=== PATIENT | female | born 1960 | race Caucasian/White ===

== ENCOUNTER 2018-08-18 09:54 | Inpatient (IN) | payer OTHER ==
[2018-08-18] MEDS: SOD CHLORIDE 0.9% 1,000 ML IV (07:00)
[2018-08-18] MEDS: CEFAZOLIN 2 GM/50 ML (PMX) 50 ML IVPB (07:00)
[~2018-08-18 09:54] MED LIST: CEFAZOLIN 1 GM INJ; DEXAMETHASONE 4 MG/ML 5 ML INJ; FENTAnyl 50 MCG/ML VIAL; GLYCOPYRROLATE 0.4 MG INJ; LIDOCAINE 2% (SDV) 5 ML INJ; MIDAZOLAM 1 MG/ML 2 ML INJ; NEOSTIGMINE 3 MG/3 ML SYRINGE; ONDANSETRON 4 MG INJ; PROPOFOL 20 ML; ROCURONIUM 50 MG INJ; SEVOFLURANE 15 MIN; SUCCINYLCHOLINE CHLORIDE 100 MG/5 ML SYG IV; SUGAMMADEX SODIUM 200 MG/2 ML VIAL IV
[2018-08-18 11:10] LABS: ADD MAN DIFF? NO
[2018-08-18 11:18] LABS: WHITE BLOOD COUNT 4.5 10^3/ul (4.8-10.8)
[2018-08-18 11:18] LABS: BASOPHILS % 0.9 % (0.0-2.0); EOSINOPHILS # 0.2 10^3/ul (0.0-0.5); EOSINOPHILS % 3.4 % (0.0-7.0); HEMATOCRIT 39.4 % (37.0-47.0); HEMOGLOBIN 12.7 g/dl (12.0-16.0); LYMPHOCYTES # 1.3 10^3/ul (0.8-2.9); LYMPHOCYTES % 28.9 % (15.0-51.0); MEAN CORPUSCULAR HEMOGLOBIN 27.7 pg (29.0-33.0); MEAN CORPUSCULAR HGB CONC 32.2 g/dl (32.0-37.0); MEAN PLATELET VOLUME 9.9 fl (7.4-10.4); MONOCYTE # 0.4 10^3/ul (0.3-0.9); MONOCYTES % 8.9 % (0.0-11.0); NEUTROPHIL # 2.6 10^3/ul (1.6-7.5); NEUTROPHILS % 57.5 % (39.0-77.0); PLATELET COUNT 231 10^3/UL (140-415); RED BLOOD COUNT 4.58 10^6/ul (4.20-5.40); RED CELL DISTRIBUTION WIDTH 13.8 % (11.5-14.5)
[2018-08-18 11:33] LABS: ALANINE AMINOTRANSFERASE 18 IU/L (13-69); ALBUMIN 4.4 g/dl (3.3-4.9); ALBUMIN/GLOBULIN RATIO 1.29; ALKALINE PHOSPHATASE 71 IU/L (42-121); ANION GAP 9 (5-13); ASPARTATE AMINO TRANSFERASE 30 IU/L (15-46); BILIRUBIN,INDIRECT 0.5 mg/dl (0-1.1); BILIRUBIN,TOTAL 0.5 mg/dl (0.2-1.3); BLOOD UREA NITROGEN 17 mg/dl (7-20); CARBON DIOXIDE 26 mmol/L (21-31); CHLORIDE 107 mmol/L (97-110); CREATININE 0.56 mg/dl (0.44-1.00); Estimated GFR > 60 mL/min (>60); GLUCOSE 95 mg/dl (70-220); POTASSIUM 3.9 mmol/L (3.5-5.1); SODIUM 142 mmol/L (135-144); TOTAL PROTEIN 7.8 g/dl (6.1-8.1)
[2018-08-18 11:37] LABS: INR 0.91; PROTIME 12.4 Sec (11.9-14.9)
[2018-08-18 11:39] LABS: CALCIUM 9.3 mg/dl (8.4-10.2)
[2018-08-18 12:17] LABS: PARTIAL THROMBOPLASTIN TIME 35.4 Sec (23.0-35.0)
[2018-08-18] MEDS ORDERED: FENTAnyl 50 MCG/ML VIAL (14:13)
[2018-08-18] MEDS ORDERED: morphine 2 MG INJ IV (15:30)
[2018-08-18] MEDS ORDERED: ONDANSETRON 4 MG INJ IV (15:30)
[2018-08-18] MEDS ORDERED: MEPERIDINE 25 MG INJ (15:50)
[2018-08-18] MEDS ORDERED: HYDROmorphONE 1 MG/5 ML IV SYRINGE IV ×2 (15:50→16:00)
[2018-08-18] MEDS: MEPERIDINE 25 MG INJ IV (15:57)
[2018-08-18] MEDS: ONDANSETRON 4 MG INJ IV (15:58)
[2018-08-18] MEDS ORDERED: LABETALOL HCL 20MG INJ IV (16:00)
[2018-08-18] MEDS ORDERED: ALBUTEROL 0.083% (NEB) 2.5 MG/3 ML AMP HHN (16:00)
[2018-08-18] MEDS ORDERED: ACETAMINOPHEN 1000MG/100ML IV 100 ML IVPB (16:00)
[2018-08-18] MEDS ORDERED: FENTAnyl 50 MCG/ML VIAL IV ×3 (16:00)
[2018-08-18] MEDS ORDERED: DIPHENHYDRAMINE 50 MG INJ IV (16:00)
[2018-08-18] MEDS ORDERED: EPHEDrine SULFATE 50 MG/5 ML SYG IV (16:00)
[2018-08-18] MEDS ORDERED: hydrALAzine 20 MG INJ IV (16:00)
[2018-08-18] MEDS ORDERED: KETOROLAC 15 MG INJ IV (16:00)
[2018-08-18] MEDS: HYDROmorphONE 1 MG/5 ML IV SYRINGE IV ×2 (16:08→16:14)
[2018-08-18] MEDS: D5W-0.45 NACL + KCL 20 MEQ 1,000 ML IV ×2 (20:34→23:13)
[2018-08-18] MEDS: IBUPROFEN 600 MG TAB PO (21:51)
[2018-08-19] MEDS: morphine SULFATE/PF (2 MG/2 ML) SYG IV (02:06)
[2018-08-19] MEDS: D5W-0.45 NACL + KCL 20 MEQ 1,000 ML IV ×2 (04:48→12:11)
[2018-08-19] MEDS: LISINOPRIL 20 MG TAB PO (09:20)
[2018-08-19] MEDS: HYDROCHLOROTHIAZIDE 25 MG TAB PO (09:21)
[2018-08-19] MEDS ORDERED: PNEUMOCOCCAL VACCINE 0.5 ML INJ (DISPENSING) IM* (10:00)
[2018-08-19] MEDS: IBUPROFEN 600 MG TAB PO (10:06)
[2018-08-19] MEDS: INFLUENZA VIRUS VACCINE 0.5 ML (DISPENSING) IM* (14:22)
[2018-08-19] MEDS ORDERED: morphine LIQ (10 MG/5 ML) CUP PO (17:00)
[2018-08-19] MEDS: HYDROCODONE/APAP (5/325) TAB PO (23:18)
[2018-08-20 05:29] LABS: ADD MAN DIFF? NO
[2018-08-20 05:39] LABS: BASOPHILS % 0.6 % (0.0-2.0); EOSINOPHILS # 0.3 10^3/ul (0.0-0.5); EOSINOPHILS % 3.9 % (0.0-7.0); HEMATOCRIT 31.2 % (37.0-47.0); LYMPHOCYTES # 2.3 10^3/ul (0.8-2.9); LYMPHOCYTES % 35.6 % (15.0-51.0); MEAN CORPUSCULAR HGB CONC 32.1 g/dl (32.0-37.0); MEAN CORPUSCULAR VOLUME 87.4 fl (82.0-101.0); MEAN PLATELET VOLUME 10.4 fl (7.4-10.4); MONOCYTE # 0.6 10^3/ul (0.3-0.9); MONOCYTES % 8.9 % (0.0-11.0); NEUTROPHIL # 3.3 10^3/ul (1.6-7.5); NEUTROPHILS % 50.7 % (39.0-77.0); PLATELET COUNT 197 10^3/UL (140-415); RED BLOOD COUNT 3.57 10^6/ul (4.20-5.40); RED CELL DISTRIBUTION WIDTH 14.3 % (11.5-14.5)
[2018-08-20 05:39] LABS: WHITE BLOOD COUNT 6.5 10^3/ul (4.8-10.8)
[2018-08-20 05:56] LABS: ANION GAP 6 (5-13); BLOOD UREA NITROGEN 15 mg/dl (7-20); CALCIUM 8.5 mg/dl (8.4-10.2); CARBON DIOXIDE 26 mmol/L (21-31); CHLORIDE 108 mmol/L (97-110); CREATININE 0.64 mg/dl (0.44-1.00); Estimated GFR > 60 mL/min (>60); GLUCOSE 97 mg/dl (70-220); SODIUM 140 mmol/L (135-144)
[2018-08-20 05:58] LABS: POTASSIUM 4.2 mmol/L (3.5-5.1)
[2018-08-20] MEDS: HYDROCHLOROTHIAZIDE 25 MG TAB PO (09:23)
[2018-08-20] MEDS: LISINOPRIL 20 MG TAB PO (09:23)
[2018-08-20] MEDS: HYDROCODONE/APAP (5/325) TAB PO ×2 (09:27→17:54)
== END 2018-08-20 18:20 | disposition home or self-care (01) | DRG 581 ==
LOC: REC 09:54 → MS1 18:34
PROC: 0HBV0ZZ Excision of Bilateral Breast, Open Approach (ICD-10-PCS; principal; 2018-08-18 09:00)
PROC: 07B90ZX Excision of Left Internal Mammary Lymphatic, Open Approach, Diagnostic (ICD-10-PCS; 2018-08-18 09:00)
PROC: 07B80ZX Excision of Right Internal Mammary Lymphatic, Open Approach, Diagnostic (ICD-10-PCS; 2018-08-18 09:00)
DX: D05.12 Intraductal carcinoma in situ of left breast (principal); D05.11 Intraductal carcinoma in situ of right breast; I10 Essential (primary) hypertension
CPT/HCPCS: 71045; 80048; 80053; 85025; 85610; 85730; 88307; 88341; 88342; 90686; 93005

== ENCOUNTER 2018-10-10 07:38 | Day surgery (SDC) | payer OTHER ==
[2018-10-10] MEDS ORDERED: CEFAZOLIN 1 GM/50 ML (PMX) 50 ML IVPB (10:05)
[2018-10-10] MEDS: CEFAZOLIN 1 GM/50 ML (PMX) 50 ML IVPB (10:50)
[2018-10-10] MEDS: SOD CHLORIDE 0.9% 1,000 ML IV (11:00)
[2018-10-10] MEDS: LIDOCAINE 1%/EPI (1:100,000) (MDV) 20 ML (11:23)
[2018-10-10] MEDS: FENTAnyl 50 MCG/ML VIAL (11:25)
[2018-10-10] MEDS: HEPARIN 1000 UNITS/ML 10 ML INJ (11:28)
[2018-10-10] MEDS: POLYMYXIN/BACITRACIN 1L IRRIG IRR (11:38)
[2018-10-10] MEDS ORDERED: HYDROCODONE/APAP (5/325) TAB PO (12:00)
== END 2018-10-10 14:35 | disposition home or self-care (01) ==
LOC: SDS 07:38
DX: C50.912 Malignant neoplasm of unspecified site of left female breast (principal); C50.911 Malignant neoplasm of unspecified site of right female breast; I10 Essential (primary) hypertension
CPT/HCPCS: 36561; 76942; 93306